=== PATIENT | male | born 1965 | race American Indian/Alaskan Native ===

== ENCOUNTER 2019-03-25 14:12 | Emergency (ER) | payer OTHER ==
--- NOTE | 2019-03-25 14:32 | Emergency Department Report ---
Blank Doc - Documentation Documentation: This is a 53-year-old male that presents with penile erection. Stated started yesterday but has not resolved yet. This initial assessment/diagnostic orders/clinical plan/treatment(s) is/are subject to change based on patient's health status, clinical progression and re-assessment by fellow clinical providers in the ED. Further treatment and workup at subsequent clinical providers discretion. Patient/guardians urged not to elope from the ED as their condition may be serious if not clinically assessed and managed. Initial orders include: 1- Patient sent to MAIN ED for further evaluation and treatment
[2019-03-25] MEDS ORDERED: MORPHINE IV ONE ×2 (15:18→16:47)
[2019-03-25] MEDS ORDERED: NACL 0.9% 1000 ML 1,000 ML IV ONE (15:18)
[2019-03-25] MEDS ORDERED: NEO-SYNEPHRINE 1 MG, NACL P/F VIAL (10 ML) 9.9 ML IJ**NOT IV ONE (15:19)
[2019-03-25] MEDS ORDERED: ZOFRAN IV ONE ×2 (15:19→16:48)
[2019-03-25] MEDS ORDERED: XYLOCAINE 1% 20 mL ONE (15:29)
--- NOTE | 2019-03-25 15:49 | Emergency Department Report ---
ED Male HPI - General Chief complaint: Urogenital-Male Stated complaint: PYPRISM Time Seen by Provider: 03/25/19 14:30 Source: patient Mode of arrival: Ambulatory Limitations: No Limitations - History of Present Illness Initial comments: 53-year-old -[place] male presents to ED with a painful erection for the past 12 hours. He states the symptoms started this morning around 3 AM, and he rates symptoms as severe in severity. He went to see his PCP around 9 AM, but they told him to take some Sudafed and was discharged home, that did not half, he continued to have severe enough pain, erection, so he presented to the ED for further txt. - Related Data Sexually active: No Allergies Allergy/AdvReac Type Severity Reaction Status Date / Time Sulfa (Sulfonamide Allergy Mild Rash Verified 03/25/19 14:16 Antibiotics) ED Review of Systems ROS: Stated complaint: PYPRISM Other details as noted in HPI Comment: All other systems reviewed and negative Respiratory: denies: cough Genitourinary: other (Penile pain) ED Past Medical Hx - Past Medical History Hx Hypertension: Yes Additional medical history: colon cancer - Surgical History Past Surgical History?: Yes Additional Surgical History: cancer - Social History Smoking Status: Never Smoker Substance Use Type: Alcohol ED Physical Exam - General Limitations: No Limitations General appearance: alert, in no apparent distress - Head Head exam: Present: atraumatic, normocephalic - Eye Eye exam: Present: normal appearance - ENT ENT exam: Present: normal exam - Neck Neck exam: Present: normal inspection - Respiratory Respiratory exam: Present: normal lung sounds bilaterally - GI/Abdominal GI/Abdominal exam: Present: soft, normal bowel sounds - exam: Present: other (erection, priapism) ED Course Vital Signs 03/25/19 03/25/19 14:30 17:17 Temperature 98.0 F 98.5 F Pulse Rate 98 H 81 Respiratory 19 16 Rate Blood Pressure 137/85 141/86 [Left] O2 Sat by Pulse 98 100 Oximetry ED Medical Decision Making - Medical Decision Making 53-year-old male with. Physician, for 12 hours. In ED patient received normal saline 1 L, full milligram IV morphine, 4 mg IV Zofran, phenylephrine 0.5 mL on both side of the cavernosa. Sudafed 120 mg by mouth. He continued to have a painful erection, therefore he was transferred to [facility]. Since no urology available at [facility].. He is a [place] patient. Dr. Guzman urology accepted. Critical care attestation.: If time is entered above; I have spent that time in minutes in the direct care of this critically ill patient, excluding procedure time. ED Disposition Clinical Impression: Priapism, unspecified Disposition: [id number]/TX-[id number] ANOTHER TYPE HLTHCARE Is pt being admited?: No Does the pt Need Aspirin: No Condition: Stable Referrals: WILLY EDEN MD [Primary Care Provider] - 3-5 Days
[2019-03-25] MEDS ORDERED: SUDAFED PO ONE (17:00)
[2019-03-25 17:18] VITALS: BP 141/86
== END 2019-03-25 17:20 | disposition other institution (70) ==
LOC: ED 14:12
DX: N48.30 Priapism, unspecified (principal); I10 Essential (primary) hypertension; Z98.890 Other specified postprocedural states; Z88.2 Allergy status to sulfonamides
CPT/HCPCS: 96374; 96375; 96376; 99284; J2270; J2370; J2405; J7030